=== PATIENT | female | born 1965 | race Asian ===

== ENCOUNTER 2022-05-13 02:08 | Emergency (ER) | payer OTHER ==
[~2022-05-13] VITALS: Ht 167.6 cm; Wt 63.5 kg
--- NOTE | 2022-05-13 02:20 | NUR ---
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 PATIENT ALERT AND ORIENTED X3. AMBULATORY WITH NON LABORED BREATHING IN BED 09 ON MONITO AND POX AWAITING MD PEÑALOZA.
--- NOTE | 2022-05-13 02:23 | NUR ---
BLOOD COLLECTED AND SENT TO LAB
--- NOTE | 2022-05-13 02:23 | NUR ---
EMT AT BEDSIDE FOR EKG
--- NOTE | 2022-05-13 02:23 | NUR ---
COVID SWAB DONE AND SENT TO LAB
[2022-05-13] MEDS ORDERED: DILTIAZEM HCL 50 MG IV ONE (02:30)
[2022-05-13] MEDS ORDERED: DILTIAZEM HCL 50 MG IV IV ONE (02:30)
--- NOTE | 2022-05-13 02:43 | NUR ---
UPDATED SELAM [phone] REGARDING PT'S CONDITION
--- NOTE | 2022-05-13 02:46 | NUR ---
COMPLIANCE ASSOCIATE AT PT'S BEDSIDE
[2022-05-13 02:48] LABS: CALCIUM, SERUM 9.9 mg/dL (8.5-10.1); CARBON DIOXIDE 29 mmol/L (21-32); CHLORIDE 108 mmol/L (98-107); CREATININE 0.7 mg/dL (0.6-1.3); GLUCOSE 98 mg/dL (74-106); POTASSIUM 3.8 mmol/L (3.5-5.1); SODIUM SERUM 141 mmol/L (136-145); UREA NITROGEN, BLOOD 17 mg/dL (7-18)
[2022-05-13 02:54] LABS: ALANINE AMINOTRANSFERASE 14 U/L (12-78); ALBUMIN 3.8 g/dL (3.4-5.0); ALKALINE PHOSPHATASE 107 U/L (46-116); ASPARTATE AMINOTRANSFERASE 12 U/L (15-37); BILIRUBIN,DIRECT 0.1 mg/dL (0.0-0.2); BILIRUBIN,TOTAL 0.1 mg/dL (0.2-1.0); TOTAL PROTEIN, SERUM 7.6 g/dL (6.4-8.2)
[2022-05-13 03:01] LABS: BASOPHILS # (AUTO) 0.1 K/uL (0.0-0.2); EOSINOPHILS % (AUTO) 0.2 % (0.0-6.0); HEMATOCRIT 43 % (33-45); HEMOGLOBIN 14.2 g/dL (11.5-14.8); LYMPHOCYTES # (AUTO) 2.7 K/uL (0.8-4.8); LYMPHOCYTES % (AUTO) 22.9 % (20.0-44.0); MEAN CORPUSCULAR HGB CONC 33 g/dl (31.0-36.0); MEAN CORPUSCULAR VOLUME 84 fL (82-100); MONOCYTES # (AUTO) 0.6 K/uL (0.1-1.30); MONOCYTES % (AUTO) 4.7 % (2.0-12.0); NEUTROPHILS # (AUTO) 8.4 K/uL (1.8-8.9); NEUTROPHILS % (AUTO) 71.2 % (43.0-81.0); PLATELET COUNT (AUTO) 354 K/uL (150-450); RED BLOOD CELL COUNT(AUTO) 5.07 MIL/uL (4.0-5.2); WHITE BLOOD COUNT (AUTO) 11.8 K/uL (4.3-11.0)
--- NOTE | 2022-05-13 03:22 | NUR ---
LASHONDA EPRP PAGED. AWAITING CALL BACK FOR PEER TO PEER
[2022-05-13] MEDS ORDERED: METO25TA20 PO (05:29)
[2022-05-13] MEDS ORDERED: ASPI-1169 PO (05:29)
[2022-05-13 05:53] VITALS: BP 63/58
--- NOTE | 2022-05-13 06:15 | NUR ---
Patient discharged to home in stable condition. Written and verbal after care instructions given. Patient verbalizes understanding of instruction. IV removed. Catheter intact and site benign. Pressure and 4x4 applied to site. No bleeding noted. pt ambulatory with a steady gait
== END 2022-05-13 06:15 | disposition home or self-care (01) ==
LOC: ER 02:23
DX: I48.91 Unspecified atrial fibrillation (principal); R07.9 Chest pain, unspecified; Z20.822 Contact with and (suspected) exposure to COVID-19; Z79.82 Long term (current) use of aspirin; Z79.899 Other long term (current) drug therapy
CPT/HCPCS: 99285; 96374; 71045; 87426; 93005; 85025; 80048; 80076; 36415; 84484 ×2; 85730; J3490; C9803